=== PATIENT | male | born 1960 | race Caucasian/White ===

== ENCOUNTER → 2021-05-11 | Outpatient (CLI) | payer BC, OTHER | LOC: MRI 14:52 | PROVIDERS: ATTEND Family Medicine | DX: M47.27 Other spondylosis with radiculopathy, lumbosacral region (principal); M41.86 Other forms of scoliosis, lumbar region; M43.8X6 Other specified deforming dorsopathies, lumbar region; M48.061 Spinal stenosis, lumbar region without neurogenic claudication ==

== ENCOUNTER → 2021-06-02 | Outpatient (CLI) | payer BC, OTHER ==
[~2021-06-02] VITALS: Ht 172.7 cm; Wt 99.8 kg
[~2021-06-02] MED LIST: ADCIRCA20 MG PO; DIAZEPAM 10 MG10 M1 PO; FUROSEMIDE 40 M40 MG PO; KLOR-CON M2020 MEQ PO; MULTI VITAMIN1 EACH PO; TOPROL XL25 MG PO; VITAMIN C1000 MG PO
[2021-06-02 11:04] VITALS: BP 143/101
--- NOTE | 2021-06-02 11:42 | NUR ---
Pain Clinic Assessment: 1. History of Osteoarthritis: BACK History of Rheumatoid Arthritis: Not Applicable 2. Height: 5 ft. 8 in. 172.7 cm. Weight: 220.0 lb. oz. 99.792 kg. Patient's BMI: 33.5 3. Vital Signs: BP: 143/101 Pulse: 70 Resp: 20 Temp: 02 Sat: 94 ECG Mon: 4. Pain Intensity: 7 5. Fall Risk: Dizziness: Y Needs help standing or walking: N Fallen in the last 3 months: N Fall risk comments: 6. Patient on Blood Thinner: None 7. History of Hypertension: Y 8. Opioid Therapy greater than 6 weeks: Y Opiate Contract Signed: 9. Risk Assessment Tool Provided: MODERATE 10. Functional Assessment Tool: 7 11. Recreational Drug Use: Current within past 3 mos Drug Type: METHAMPHEDIMINE Tobacco Use: Current Every Day Smoker Tobacco Type: Amount or Packs/day: 2-3 How Many Years: 43 Alcohol Use: No Frequency: Quant:
--- NOTE | 2021-06-03 09:03 | HPC ---
[facility] [place] [address] PAIN MANAGEMENT CONSULTATION Name: NOLVIA CUBA Room #: [facility] Derik#: [id number] Admission: 06/02/21 Attend Phys: Les Chavez DO Discharge: Date of : 56 Report #: [id number] THIS REPORT FOR: cc: Les Jimenez,Les Diallo DO ~ cc: Les Jimenez DO DATE OF SERVICE: 06/02/2021 REFERRING PHYSICIAN: Dr. Les Jimenez CHIEF COMPLAINT: Low back pain, bilateral anterior thigh pain. HISTORY OF PRESENT ILLNESS: As you know, the patient is a pleasant 61-year-old male who has had a longstanding history of low back pain, which began in 1987. The patient reports multiple traumas in that timeframe that may have led to symptom development. He continues to experience low back symptoms and anterior thigh pain, which prompted a change in treatment through his primary care physician. Conservative treatment as well as physician directed physical therapy did not provide much in the way of improvement. Due to lack of improvement with conservative treatment, the patient was then referred on to epidural injections at another pain clinic. He was given nonsteroidal anti-inflammatories and epidural injections, though there is no report of whether or not these were effective. The patient was subsequently then sent for MRI of the lumbar spine, which showed severe central canal stenosis at the L4-L5 level and the patient was then referred to our clinic to discuss treatment options. The patient reports today pain is constant. He describes the pain as more of a shooting, aching, gnawing, sharp, numbness and tingling when describing pain. Places current pain score at 7/10. Daily average at 7/10. Worst pain has been is 9/10. The patient states the pain is exacerbated with standing, walking and bending, improves with heat pad, sitting down and repositioning. The patient has been referred to our service to discuss interventional treatment options to address low back and anterior thigh pain. PAST MEDICAL HISTORY: 1. Hypertension. 2. Stage IV pulmonary hypertension. 3. Coronary artery disease. 4. Degenerative joint disease. 5. Osteoarthritis. 6. Emotional problems. 7. Illicit substance addiction. 8. Chronic low back and anterior thigh pain. PAST SURGICAL HISTORY: None. [address] [address] PAIN MANAGEMENT CONSULTATION Name: NOLVIA CUBA [id number] Admission: 06/02/21 Attend Phys: Les Chavez DO Discharge: Date of : 56 Report #: [id number] SOCIAL HISTORY: The patient smokes 2-3 cigars per day. He has done this for about 15 years. He denies alcohol use. He has been out of the work force for 15 years, is a retired [employer] employee. He is not receiving workmen's compensation nor is he trying to obtain disability benefits. He is not in litigation in regards to pain. REVIEW OF SYSTEMS: Positive for low back pain, bilateral anterior thigh pain, shortness of breath with all activities, coronary artery disease. All other review of systems negative per 12-point review of systems other than those listed in history of present illness. Pain impact score 56 of 70 indicating severe interference of daily activities secondary to pain. ALLERGIES: No known drug allergies. CURRENT MEDICATIONS: Potassium chloride 20 mEq twice a day, furosemide 40 mg once a day, diazepam 10 mg p.o. every day, metoprolol 25 mg once a day, ascorbic acid 1000 mg once a day, multivitamin 1 tab per day, tadalafil 20 mg 2 tabs per day. IMAGING: MRI lumbar spine obtained 05/11/2021 shows L1-L2, L2-L3 essentially unremarkable. L3-L4 shows broad-based posterior disk bulge with effacement of the ventral thecal sac, severe bilateral facet arthrosis. No significant overall central canal stenosis, mild right and severe left medial foraminal stenosis with exiting L3 nerve root involved. L4-L5 shows degenerative grade I anterolisthesis, posterior bulge, foraminal disk protrusion, facet arthropathy resulting in severe foraminal stenosis, impingement upon the left L4 nerve root. L5-S1, no significant disk bulge or protrusion identified. Severe bilateral facet arthrosis. PHYSICAL EXAMINATION: VITAL SIGNS: Blood pressure 143/101, pulse is 70, respiratory rate 20, unlabored. The patient is 94% on room air. Height 5 feet 8 inches tall, weight 220 pounds, BMI calculated 33.5. GENERAL: Well-developed, well-nourished, well-hydrated 61-year-old male, appears older than stated age. Pain is rated today around 7/10. HEENT: Normocephalic, atraumatic. Pupils equal, round and responsive to light. Speech is fluent. He is deemed an excellent historian. He is wearing a mask in compliance with COVID-19 regulations. LUNGS: Decreased breath sounds bilaterally. There is a prolonged expiratory phase. There is no brad rhonchi or rales. CARDIOVASCULAR: Regular. No appreciable gallop, no rub. ABDOMEN: Soft, obese, normoactive bowel sounds. EXTREMITIES: Show minimal clubbing of the upper extremities. No cyanosis, no [address] [address] PAIN MANAGEMENT CONSULTATION Name: NOLVIA CUBA Room #: [facility]#: [id number] Admission: 06/02/21 Attend Phys: Les Chavez DO Discharge: Date of : 56 Report #: [id number] edema. MUSCULOSKELETAL: Lower extremity strength equal and symmetrical 5/5. Deep tendon reflexes are symmetrical at patella and Achilles, but diminished 1+/4. Muscle bulk and tone is symmetrical in comparing lower extremities. Seated straight leg raising negative. Supine straight leg raising positive on the left. Kassi's test is negative. Modified Gaenslen's positive for axial low back pain. Ankle clonus negative. Babinski is negative. Lumbar provocation testing is met with increasing axial back pain, mainly with rotation and lateral flexion to the left. ASSESSMENT: 1. Symptomatic lumbar radiculopathy. 2. Severe neural foraminal stenosis of lumbar spine. 3. Central canal stenosis of lumbar spine. 4. Displacement of lumbar intervertebral disk with radiculopathy. 5. Lumbosacral spondylosis with radiculopathy. 6. Facet arthropathy of lumbar spine. 7. Chronic intractable pain. PLAN: 1. Based on today's physical exam and the history the patient has provided, the description the patient uses in regards to pain as well as location of symptoms, it would appear the patient is suffering from lumbar radiculopathy. He is also experiencing axial back pain due to severe facet arthropathy noted at multiple levels in the lumbar region. We discussed with the patient the treatment options we have available and following was discussed with the patient today. We discussed physical therapy, stretching exercises and core strengthening as a treatment approach. The patient is currently being treated by a physician directed home stretching and exercise program. We recommend he continue this option if symptoms do not improve and the patient wishes a more formalized program. We can certainly have the patient sent for physical therapy in a formalized fashion, though he is participating in those activities at home, but they are limited by his pulmonary hypertension and difficulty with oxygenation. We also discussed with the patient neuropathic medications as a treatment course. We would provide suggestions of amitriptyline, nortriptyline, Cymbalta, Lyrica or gabapentin if he chose to look towards these options of therapy. We also discussed lumbar epidural injections under fluoroscopic guidance for which the patient was referred to our clinic. We discussed spinal cord stimulator therapy as an option and ultimately surgical decompression. After reviewing the risks and benefits of all proposed treatment options, the patient requested to begin with a lumbar epidural injection under fluoroscopic guidance. 2. The patient was advised due to third green party payer restrictions that authorization would have to be obtained before the patient could undergo a lumbar epidural injection. Authorization could take anywhere from 1-7 working days, will begin that process immediately. Once we have this authorization, we [address] [address] PAIN MANAGEMENT CONSULTATION Name: BEREKETNOLVIA Murillo Room #: [facility]#: [id number] Admission: 06/02/21 Attend Phys: Les Chavez DO Discharge: Date of : 56 Report #: [id number] will have the patient return to undergo lumbar epidural injection. I have requested the patient to clear the remainder of his schedule from the time of the procedure for the first 24 hours. We want him to remain relatively sedentary, allowing the medication to reach full effect. The patient is agreeable with this plan. Once we have the authorization, we will have the patient return. 3. No medication changes made at today's visit. The patient will continue current medical therapy as prior prescribed. 4. We plan to see the patient back in followup visit for the requested lumbar epidural injection. We are hopeful this will occur quickly and we will see the patient back to undergo the procedure. We wish to thank Dr. Les Jimenez for the referral of this patient to our clinic. We will keep you apprised of his response to treatment as we address lumbar radicular symptoms with interventional treatments. Again, we wish to thank you for the opportunity to see the patient in consultation. <ELECTRONICALLY SIGNED> By: Les Chavez DO 06/03/21 0903 [id number] Les Chavez DO /nt
--- NOTE | 2021-06-09 08:17 | HPC ---
[facility] [place] [address] PAIN MANAGEMENT CONSULTATION Name: NOLVIA CUBA [facility] [id number] Admission: 06/02/21 Attend Phys: Les Chavez DO Discharge: Date of : 56 Report #: [id number] THIS REPORT FOR: cc: Les Jimenez James A. DO Johnson, James E. DO ~ DATE OF SERVICE: 06/03/2021 CHIEF COMPLAINT: Low back pain, bilateral anterior thigh pain. HISTORY OF PRESENT ILLNESS: As you know, the patient is a 61-year-old male with longstanding history of low back pain began in 1987. He reports multiple traumas throughout his lifetime that finally led to increasing pain that he could no longer tolerate. He was sent for MRI of lumbar spine showed severe central canal stenosis at L4-L5 level and was referred on to our clinic to trial epidural injections. We saw the patient in consultation yesterday 06/02/2021, provided today's appointment to undergo lumbar epidural injection under fluoroscopic guidance to address his 6/10 pain. The patient returns today in followup visit to undergo the first in a series of lumbar epidural injections under fluoroscopic guidance. ALLERGIES: No known drug allergies. CURRENT MEDICATIONS: Potassium chloride, furosemide, diltiazem, metoprolol, ascorbic acid, multivitamin, and Cialis. SOCIAL HISTORY: The patient smokes 2-3 cigars per day. He has done so for about 15 years. He denies alcohol use. He has been out of workforce about 15 years. He is not receiving workmen's compensation, unaccompanied today. IMAGING: No new imaging available. PHYSICAL EXAMINATION: VITAL SIGNS: Blood pressure 141/93, pulse 76, respiratory rate 18 and unlabored. The patient is 95% on room air. Height 5 feet 8 inches tall, weight 223.2 pounds, BMI calculated 33.9. GENERAL: Well-developed, well-nourished, well-hydrated 61-year-old male appearing stated age, pain is rated today 6/10. HEENT: Normocephalic, atraumatic. Pupils equal, round and responsive. He is wearing a mask in compliance with COVID-19 regulations. EXTREMITIES: Show minimal clubbing of the upper extremities. No cyanosis, no edema. MUSCULOSKELETAL: Lower extremity strength remains symmetrical again today 5/5. Seated straight leg raising negative. Supine straight leg raising is positive on the left. Kassi's test is negative. Modified Gaenslen's positive for axial low back pain. Ankle clonus negative. [address] [address] PAIN MANAGEMENT CONSULTATION Name: NOLVIA CUBA Room #: REG [facility]#: [id number] Admission: 06/02/21 Attend Phys: Les Chavez DO Discharge: Date of : 56 Report #: [id number] ASSESSMENT: 1. Symptomatic lumbar radiculopathy. 2. Severe neural foraminal stenosis of lumbar spine. 3. Central canal stenosis of lumbar spine. 4. Displacement of lumbar intervertebral disk with radiculopathy. 5. Lumbosacral spondylosis with radiculopathy. 6. Facet arthropathy of the lumbar spine. 7. Chronic intractable pain. PLAN: 1. The patient returns today in followup visit having prepared to undergo the first in a series of lumbar epidural injections under fluoroscopic guidance. The patient has been advised of the risks and the benefits of a lumbar epidural injection. These risks include, but are not necessarily limited to; bleeding, bruising, infection, worsening of pain, no relief of pain, temporary or permanent muscle weakness, temporary or permanent nerve damage, possible paralysis, post-dural puncture headache and . The patient states understood and wished to proceed. 2. No medication changes made at today's visit. The patient will continue current medical therapy as prior prescribed. 3. We plan to see the patient back in followup visit in 1 month. At that time, review the efficacy of today's lumbar epidural injection in terms next in the series of epidural injections would be recommended. We are hopeful the patient will see good and prolonged benefit with today's procedure. PROCEDURE NOTE: DESCRIPTION OF PROCEDURE: L4-L5 interlaminar epidural steroid injection under fluoroscopic guidance. This is the first procedure of the first series that the patient is undergoing. After obtaining written consent, the patient was taken back to the fluoroscopy suite, placed in a prone position with pillow under the abdomen to decrease lumbar lordosis. The skin overlying the lumbosacral area was then prepped and draped in aseptic fashion. The L4-L5 vertebral interspace was then identified by AP fluoroscopy. The skin and subcutaneous tissue overlying the target site of injection was anesthetized with 3 mL 1% lidocaine. A 20-gauge 3-1/2 inch Tuohy needle was then advanced under fluoroscopic guidance towards the epidural space using a parasagittal approach. The epidural space was identified using loss of resistance to air technique. After negative aspiration for heme or cerebrospinal fluid, a total of 1 mL of Omnipaque was injected. A lumbar epidurogram was confirmed using both AP and lateral fluoroscopy. After negative aspiration for heme or cerebrospinal fluid, 5 mL of a solution containing 2 mL 40 mg per mL 80 mg total triamcinolone along with [address] [address] PAIN MANAGEMENT CONSULTATION Name: NOLVIA CUBA [facility] [id number] Admission: 06/02/21 Attend Phys: Les Chavez DO Discharge: Date of : 56 Report #: [id number] mL of lidocaine 1% was injected in increments. Contrast spread was noted in the posterior epidural space. The needle was then retracted approximately half way and needle tract flushed with 1 mL of 1% lidocaine. Needle was then removed. There were no apparent sensory or motor deficits in the lower extremity following the procedure. A sterile bandage was placed over the injection site. The heart rate, pulse, oximetry and blood pressure were continuously monitored after the procedure. There were no apparent complications. The patient tolerated the procedure well and was carefully escorted to the recovery room in stable condition. There were no apparent complications. After meeting discharge criteria, the patient was then discharged home. <ELECTRONICALLY SIGNED> By: Les Chavez DO 06/09/21 0817 [id number] Les Chavez DO /nt
== END | disposition home or self-care (01) ==
LOC: PAIN 10:10
PROVIDERS: ATTEND Anesthesiology Pain Medicine
DX: M51.16 Intervertebral disc disorders with radiculopathy, lumbar region (principal); M48.061 Spinal stenosis, lumbar region without neurogenic claudication; M47.27 Other spondylosis with radiculopathy, lumbosacral region; M47.26 Other spondylosis with radiculopathy, lumbar region; G89.29 Other chronic pain; I10 Essential (primary) hypertension; I25.10 Atherosclerotic heart disease of native coronary artery without angina pectoris; M19.90 Unspecified osteoarthritis, unspecified site; F17.210 Nicotine dependence, cigarettes, uncomplicated; Z98.890 Other specified postprocedural states; Z79.899 Other long term (current) drug therapy; Z88.8 Allergy status to other drugs, medicaments and biological substances

== ENCOUNTER → 2021-06-03 | Outpatient (CLI) | payer BC, OTHER ==
[~2021-06-03] VITALS: Ht 172.7 cm; Wt 101.2 kg
[2021-06-03 09:41] VITALS: BP 141/93
--- NOTE | 2021-06-03 09:46 | NUR ---
Pain Clinic Assessment: 1. History of Osteoarthritis: BACK History of Rheumatoid Arthritis: Not Applicable 2. Height: 5 ft. 8 in. 172.7 cm. Weight: 223.2 lb. oz. 101.243 kg. Patient's BMI: 33.9 3. Vital Signs: BP: 141/93 Pulse: 76 Resp: 18 Temp: 02 Sat: 95 ECG Mon: 4. Pain Intensity: 6 5. Fall Risk: Dizziness: N Needs help standing or walking: N Fallen in the last 3 months: N Fall risk comments: 6. Patient on Blood Thinner: None 7. History of Hypertension: Y 8. Opioid Therapy greater than 6 weeks: Y Opiate Contract Signed: 9. Risk Assessment Tool Provided: MODERATE 10. Functional Assessment Tool: 7 11. Recreational Drug Use: Current within past 3 mos Drug Type: METH Tobacco Use: Current Every Day Smoker Tobacco Type: Cigars Amount or Packs/day: 3/D How Many Years: Alcohol Use: No Frequency: Quant:
== END | disposition home or self-care (01) ==
LOC: PAIN 08:29
PROVIDERS: ATTEND Anesthesiology Pain Medicine
DX: M51.16 Intervertebral disc disorders with radiculopathy, lumbar region (principal); M47.27 Other spondylosis with radiculopathy, lumbosacral region; M47.26 Other spondylosis with radiculopathy, lumbar region; M48.061 Spinal stenosis, lumbar region without neurogenic claudication; G89.29 Other chronic pain; F17.210 Nicotine dependence, cigarettes, uncomplicated; Z98.890 Other specified postprocedural states; Z79.899 Other long term (current) drug therapy

== ENCOUNTER → 2021-06-30 | Outpatient (CLI) | payer BC, OTHER ==
[~2021-06-30] VITALS: Ht 172.7 cm; Wt 99.3 kg
[2021-06-30 10:07] VITALS: BP 139/98
--- NOTE | 2021-06-30 10:17 | NUR ---
Pain Clinic Assessment: 1. History of Osteoarthritis: BACK History of Rheumatoid Arthritis: Not Applicable 2. Height: 5 ft. 8 in. 172.7 cm. Weight: 219.0 lb. oz. 99.338 kg. Patient's BMI: 33.3 3. Vital Signs: BP: 139/98 Pulse: 106 Resp: 20 Temp: 02 Sat: 96 ECG Mon: 4. Pain Intensity: 4 5. Fall Risk: Dizziness: N Needs help standing or walking: N Fallen in the last 3 months: N Fall risk comments: 6. Patient on Blood Thinner: None 7. History of Hypertension: Y 8. Opioid Therapy greater than 6 weeks: Y Opiate Contract Signed: 9. Risk Assessment Tool Provided: low-0 10. Functional Assessment Tool: 56/70 11. Recreational Drug Use: Current within past 3 mos Drug Type: methamphetamine Tobacco Use: Current Every Day Smoker Tobacco Type: Cigars Amount or Packs/day: 2-3 How Many Years: 52 Alcohol Use: No Frequency: Quant:
--- NOTE | 2021-06-30 14:13 | HPC ---
[facility] [place] [address] PAIN MANAGEMENT CONSULTATION Name: NOLVIA CUBA [id number] Admission: 06/30/21 Attend Phys: Les Chavez DO Discharge: Date of : 56 Report #: [id number] THIS REPORT FOR: cc: Les Jimenez James A. DO Johnson, James E. DO ~ cc: Les Jimenez DO DATE OF SERVICE: 06/30/2021 CHIEF COMPLAINT: Low back pain, bilateral anterior thigh pain. HISTORY OF PRESENT ILLNESS: As you know, the patient is a 61-year-old male with longstanding history of back pain, which began in 1987. He reports multiple traumas throughout his lifetime, which in combination led to progressively worsening symptoms. He underwent a lumbar epidural injection under fluoroscopic guidance per the request of his primary care physician on 06/03/2021. The patient did very well with that injection reporting up to 50% improvement in overall pain, which is ongoing. He returns today in followup visit 1 month postprocedure to discuss treatment options if his symptoms do reoccur. He states overall his pain level of 4/10 is tolerable for him. He does describe pain is exacerbated with standing, walking and activities, improved with heat and cold compresses, sitting and the previous epidural injection. ALLERGIES: No known drug allergies. CURRENT MEDICATIONS: Potassium chloride, furosemide, diltiazem, metoprolol, ascorbic acid and intermittent Cialis. SOCIAL HISTORY: The patient smokes 2-3 cigars per day. He has done so for about 15 years. Denies IV or illicit drug use. He has been out of work force for about 15 years. He reports positive for methamphetamines. He is not receiving workmen's compensation nor is he trying to obtain disability benefits, unaccompanied today. IMAGING: No new imaging available. PHYSICAL EXAMINATION: VITAL SIGNS: Blood pressure 139/98, pulse 106, respiratory rate 20, unlabored. The patient is 96% on room air. Height 5 feet 8 inches tall, weight 219 pounds, BMI calculated 33.3. GENERAL: Well-developed, well-nourished, well-hydrated 61-year-old male, appears older than stated age, pain is rated today around 4/10. HEENT: Normocephalic, atraumatic. Pupils equal, round and responsive. He is wearing a mask in compliance with COVID-19 regulations and hospital policy. EXTREMITIES: Show minimal clubbing of the upper extremities. No cyanosis, no edema. [address] [address] PAIN MANAGEMENT CONSULTATION Name: NOLVIA CUBA Room #: REG [facility]#: [id number] Admission: 06/30/21 Attend Phys: Les Chavez DO Discharge: Date of : 56 Report #: [id number] MUSCULOSKELETAL: Seated straight leg raising is negative. Supine straight leg raising remains positive on the left at about 65-70 degree angle. Ankle clonus negative. Babinski is negative. Modified Gaenslen's positive for axial low back pain. Muscle bulk and tone is equal and symmetrical in lower extremities. Strength appears normal. ASSESSMENT: 1. Symptomatic lumbar radiculopathy. 2. Severe neural foraminal stenosis of lumbar spine. 3. Central canal stenosis of lumbar spine. 4. Displacement of lumbar intervertebral disk with radiculopathy. 5. Lumbosacral spondylosis with radiculopathy. 6. Facet arthropathy of lumbar spine. 7. Chronic intractable pain. PLAN: 1. The patient returns today in followup visit having noted excellent benefit with the lumbar epidural injection performed in 05/2021. He reports approximately 50% improvement in overall pain, which is ongoing. The patient is very pleased with response to treatment. He states that he is now down to a level of tolerable from a pain standpoint. He wishes to delay the next in the series of epidural injections until which time his pain becomes intolerable. We will make ourselves available to the patient to accommodate his schedule if he requires the next in the series of epidural injections. 2. The patient and I did discuss today suggestions of treatment to address neuropathic residual symptoms. We would recommend either amitriptyline, nortriptyline, Cymbalta, Lyrica or gabapentin. I would caution the use of those medications with concomitant use of methamphetamines for which the patient continues to participate in usage. There have been no direct studies to confirm potential side effects or synergistic effects with these medications and methamphetamines today. If this patient is going to be started on medications, I would be very careful and have the titrate and watch for any side effects. 3. I plan to see the patient back in followup visit on an as-needed basis for the next in the series of lumbar epidural injections. We are pleased to see the patient has done well with those injections and we will be available to see him back for the next in the series. <ELECTRONICALLY SIGNED> By: Les Chavez DO 06/30/21 1413 [id number] Les Chavez DO /nt
== END ==
LOC: PAIN 09:54
PROVIDERS: ATTEND Anesthesiology Pain Medicine
DX: M51.26 Other intervertebral disc displacement, lumbar region (principal); M47.26 Other spondylosis with radiculopathy, lumbar region; M47.27 Other spondylosis with radiculopathy, lumbosacral region; M48.062 Spinal stenosis, lumbar region with neurogenic claudication; M79.651 Pain in right thigh; M79.652 Pain in left thigh; G89.29 Other chronic pain; Z79.899 Other long term (current) drug therapy

== ENCOUNTER → 2021-08-11 | Outpatient (CLI) | payer BC, OTHER ==
[~2021-08-11] VITALS: Ht 172.7 cm; Wt 100.3 kg
[2021-08-11 09:49] VITALS: BP 126/91
--- NOTE | 2021-08-11 10:01 | NUR ---
Pain Clinic Assessment: 1. History of Osteoarthritis: BACK History of Rheumatoid Arthritis: Not Applicable 2. Height: 5 ft. 8 in. 172.7 cm. Weight: 221.2 lb. oz. 100.336 kg. Patient's BMI: 33.6 3. Vital Signs: BP: 126/91 Pulse: 97 Resp: 14 Temp: 02 Sat: 93 ECG Mon: 4. Pain Intensity: 7 5. Fall Risk: Dizziness: Y Needs help standing or walking: N Fallen in the last 3 months: N Fall risk comments: 6. Patient on Blood Thinner: None 7. History of Hypertension: Y 8. Opioid Therapy greater than 6 weeks: Y Opiate Contract Signed: 9. Risk Assessment Tool Provided: mod-4 10. Functional Assessment Tool: 56/70 11. Recreational Drug Use: Current within past 3 mos Drug Type: Tobacco Use: Current Every Day Smoker Tobacco Type: Cigars Amount or Packs/day: 2-3 How Many Years: Alcohol Use: No Frequency: Quant:
--- NOTE | 2021-08-11 13:46 | HPC ---
[facility] [place] [address] PAIN MANAGEMENT CONSULTATION Name: NOLIVA CUBA Room #: REG [facility] Derik#: [id number] Admission: 08/11/21 Attend Phys: Les Chavez DO Discharge: Date of : 56 Report #: [id number] THIS REPORT FOR: cc: Les Jimenez,Les Diallo DO ~ cc: Les Jimenez DO DATE OF SERVICE: 08/11/2021 CHIEF COMPLAINT: Low back pain, bilateral anterior thigh pain, right greater than left. HISTORY OF PRESENT ILLNESS: As you know, the patient is a 61-year-old male with longstanding history of back pain, which began in 1987. He reports multiple traumas that he believes combined to be due to his progressively worsening symptoms. He underwent a lumbar epidural injection under fluoroscopic guidance at our visit of 06/03/2021. The patient reports that injection provided improvement in symptoms of greater than 50-60%, which is ongoing. He returns today in followup visit reporting a slow and progressive return of symptoms now placing pain score 7/10. He is very pleased with response to the first injection returning today to begin the process of undergoing the next in the series of epidural injections. The patient denies injury or trauma that may have led to symptom reoccurrence. He has had no changes in his medication management that would preclude him from undergoing the requested injection. He understands that authorization will be necessary before he can undergo the procedure. He is hopeful that he can undergo this procedure quickly as he is planning to be quite active over the next couple of months. He describes the pain begins in low back, radiates to the anterior thighs, right greater than left. This is fairly typical for the patient's distribution of symptoms. ALLERGIES: No known drug allergies. CURRENT MEDICATIONS: Potassium chloride 20 mcg twice a day, furosemide 40 mg once a day, diazepam 10 mg p.r.n., metoprolol 25 mg b.i.d., ascorbic acid 1000 mg once a day, multivitamin 1 tab per day, tadalafil 20 mg p.r.n. SOCIAL HISTORY: The patient smokes 2-3 cigars per day. He has done so for about 15 years. He denies alcohol use. He does admit to methamphetamine use. He is unemployed. He is unaccompanied today. IMAGING: No new imaging available. PHYSICAL EXAMINATION: VITAL SIGNS: Blood pressure 126/91, pulse 97, respiratory rate 14 and unlabored. The patient 93% on room air. Height 5 feet 8 inches tall, weight 221.2 pounds, BMI [place] 33[place]6. [place] [address] PAIN MANAGEMENT CONSULTATION Name: NOLVIA CUBA [facility] [id number] Admission: 08/11/21 Attend Phys: Les Chavez DO Discharge: Date of : 56 Report #: [id number] GENERAL: Well-developed, well-nourished, well-hydrated 61-year-old male appearing stated age, pain is rated today around 7/10. HEENT: Normocephalic, atraumatic. Pupils are round. He is wearing a mask in compliance with COVID-19 regulations. EXTREMITIES: Show no clubbing, no cyanosis and no appreciable edema. MUSCULOSKELETAL: Lower extremity strength appears symmetrical 5/5. Muscle bulk and tone is symmetrical in comparing lower extremities. Seated straight leg raising negative. Supine straight leg raising is positive at this time on the right approximately 60-degree angle, negative on the left. Ankle clonus negative. Babinski's is negative. Modified Gaenslen's positive again for low back pain. There does not appear to be any radiation of symptoms with propagating testing. He is able to toe walk and heel walk with mild assistance. He is intact to light touch from L1 through S2 dermatomes. ASSESSMENT: 1. Symptomatic lumbar radiculopathy. 2. Severe neural foraminal stenosis of lumbar spine. 3. Central canal stenosis of lumbar spine. 4. Displacement of lumbar intervertebral disk with radiculopathy. 5. Lumbosacral spondylosis with radiculopathy. 6. Facet arthropathy of lumbar spine. 7. Chronic intractable pain. PLAN: 1. The patient returns today in followup visit to begin the process of undergoing the next in the series of lumbar epidural injections. The patient has done very well with the previous injection noticing greater than 50% improvement in overall pain lasting until just recently. He has had a slow and progressive return of symptoms without inciting injury or trauma. He is placing pain today at 7/10. Based on the physical exam and the history he provides and the recurrence of symptoms, it does appear that his foraminal stenosis has been re-exacerbated with activity. We recommend the next in the series of lumbar epidural injections. We will begin the process immediately of authorization. Once that process has been completed, we will have the patient return to undergo the next in the series. The patient is agreeable with the plan. 2. No medication changes made at today's visit. The patient will continue current medical therapy as prior prescribed. 3. We will see the patient back in followup visit once authorization has been obtained for him to undergo the requested lumbar epidural injection. I am hopeful the patient will have that capability to undergo the procedure quite quickly. We will begin that process immediately. We will contact the patient [facility] [address] [place] [address] PAIN MANAGEMENT CONSULTATION Name: NOLVIA CUBA Room #: REG CLNemo More#: [id number] Admission: 08/11/21 Attend Phys: Les Chavez DO Discharge: Date of : 56 Report #: [id number] by phone once we have this authorization and have him return to undergo the procedure. <ELECTRONICALLY SIGNED> By: Les Chavez DO 08/11/21 1346 [id number] [id number] Les Chavez DO /nt
== END ==
LOC: PAIN 08:13
PROVIDERS: ATTEND Anesthesiology Pain Medicine
DX: M47.26 Other spondylosis with radiculopathy, lumbar region (principal); M51.17 Intervertebral disc disorders with radiculopathy, lumbosacral region; M48.061 Spinal stenosis, lumbar region without neurogenic claudication; M47.27 Other spondylosis with radiculopathy, lumbosacral region; M79.651 Pain in right thigh; M79.652 Pain in left thigh; G89.29 Other chronic pain; Z79.899 Other long term (current) drug therapy

== ENCOUNTER → 2021-08-18 | Outpatient (CLI) | payer BC, OTHER ==
[~2021-08-18] VITALS: Ht 172.7 cm; Wt 101.6 kg
[2021-08-18 09:58] VITALS: BP 134/93
--- NOTE | 2021-08-18 10:05 | NUR ---
Pain Clinic Assessment: 1. History of Osteoarthritis: BACK History of Rheumatoid Arthritis: Not Applicable 2. Height: 5 ft. 8 in. 172.7 cm. Weight: 224.0 lb. oz. 101.606 kg. Patient's BMI: 34.1 3. Vital Signs: BP: 134/93 Pulse: 92 Resp: 16 Temp: 02 Sat: 95 ECG Mon: 4. Pain Intensity: 6 5. Fall Risk: Dizziness: N Needs help standing or walking: N Fallen in the last 3 months: N Fall risk comments: 6. Patient on Blood Thinner: None 7. History of Hypertension: Y 8. Opioid Therapy greater than 6 weeks: Y Opiate Contract Signed: 9. Risk Assessment Tool Provided: mod-4 10. Functional Assessment Tool: 56/70 11. Recreational Drug Use: Current within past 3 mos Drug Type: Tobacco Use: Current Every Day Smoker Tobacco Type: Amount or Packs/day: How Many Years: Alcohol Use: No Frequency: Quant:
--- NOTE | 2021-08-19 08:06 | HPC ---
[facility] [place] [address] PAIN MANAGEMENT CONSULTATION Name: NOLVIA CUBA Room #: [facility] [id number] Admission: 08/18/21 Attend Phys: Les Chavez DO Discharge: Date of : 56 Report #: [id number] THIS REPORT FOR: cc: Les Jimenez,Les Diallo DO ~ cc: Les Jimenez DO DATE OF SERVICE: 08/18/2021 CHIEF COMPLAINT: Low back pain and bilateral anterior thigh pain, right greater than left. HISTORY OF PRESENT ILLNESS: As you know, the patient is a very pleasant 61-year-old male with longstanding history of back pain, which began in 1987. He reports multiple traumas that may have led to the symptom development. He was seen in consultation per the request of his primary care physician, undergoing a lumbar epidural injection once authorization had been obtained with a 60% improvement in overall pain. He returns today for the second in the series. We have obtained authorization for the patient to undergo the procedure. He is placing the pain today at 6/10. The patient has had no changes in his medication management since our last visit that would preclude him from undergoing an injection today. ALLERGIES: No known drug allergies. CURRENT MEDICATIONS: See chart. SOCIAL HISTORY: The patient continues to smoke 2-3 cigars per day. He has done so for about 15 years. He denies alcohol use. He admits to methamphetamine use. He is unemployed. He is unaccompanied today. IMAGING: No new imaging available. PHYSICAL EXAMINATION: VITAL SIGNS: Blood pressure 134/93, pulse 92, respiratory rate 16 and unlabored. The patient is 95% on room air. Height 5 feet 8 inches tall, weight 224 pounds, BMI calculated 34.1. GENERAL: Well-developed, well-nourished, well-hydrated 61-year-old male appearing stated age. Pain is rated today at 6/10. HEENT: Normocephalic, atraumatic. He is wearing a mask in compliance with COVID-19 regulations and hospital policies. EXTREMITIES: Show no clubbing, no cyanosis, no edema. MUSCULOSKELETAL: Lower extremity strength is symmetrical, 5/5. Seated straight leg raising remains negative. Supine straight leg raising is positive on the right, negative on the left. Ankle clonus negative. There appears to be a mild gait change, favoring right lower extremity over left. [facility] [address] [place] [address] PAIN MANAGEMENT CONSULTATION Name: NOLVIA CUBA Room #: REG [facility]#: [id number] Admission: 08/18/21 Attend Phys: Les Chavez DO Discharge: Date of : 56 Report #: [id number] ASSESSMENT: 1. Symptomatic lumbar radiculopathy. 2. Severe neuroforaminal stenosis of the lumbar spine. 3. Central canal stenosis of the lumbar spine. 4. Displacement of lumbar intervertebral disc with radiculopathy. 5. Lumbosacral spondylosis with radiculopathy. 6. Facet arthropathy of lumbar spine. 7. Chronic intractable pain. PLAN: 1. The patient returns today in followup visit to undergo lumbar epidural injection under fluoroscopic guidance. The patient has been advised of the risks and the benefits of this procedure. These risks include, but are not necessarily limited to bleeding, bruising, infection, worsening pain, no relief of pain, also risk of temporary or permanent muscle weakness, temporary or permanent nerve damage, possible paralysis, and . The patient states understood and wished to proceed. 2. No medication changes made at today's visit. We recommend the patient continue current medical therapy as prior prescribed. 3. Plan to see the patient back in followup visit on an as needed basis for the third in the series of lumbar epidural injections if requested. PROCEDURE NOTE PROCEDURE: L4-L5 right paramedian epidural steroid injection under fluoroscopic guidance. DESCRIPTION OF PROCEDURE: This is the second procedure of the first series that the patient is undergoing. After obtaining written consent, the patient was taken back to the fluoroscopy suite, placed in a prone position with pillow under the abdomen to decrease lumbar lordosis. The skin overlying the lumbosacral area was then prepped and draped in aseptic fashion. The L4-L5 vertebral interspace was then identified by AP fluoroscopy. The skin and subcutaneous tissue overlying the target site of injection was anesthetized with 3 mL 1% lidocaine. A 20-gauge Tuohy needle was then advanced under fluoroscopic guidance towards the epidural space using a right paramedian approach. The epidural space was identified using loss of resistance to air technique. After negative aspiration for heme or cerebrospinal fluid, a total of 1 mL of Omnipaque was injected. A lumbar epidurogram was confirmed using both AP and lateral fluoroscopy. After negative aspiration for heme or cerebrospinal fluid, 5 mL of a solution containing 2 mL 40 mg per mL, 80 mg total triamcinolone along with 3 mL of lidocaine 1% was injected in increments. Contrast spread was noted in [facility] [address] [place] [address] PAIN MANAGEMENT CONSULTATION Name: NOLVIA CUBA Room #: REG CL Keegan#: [id number] Admission: 08/18/21 Attend Phys: Les Chavez DO Discharge: Date of : 56 Report #: [id number] postepidural space. The needle was then retracted approximately half way and needle tract flushed with 1 mL of 1% lidocaine. Needle was then removed. There were no apparent sensory or motor deficits in the lower extremity following the procedure. A sterile bandage was placed over the injection site. The heart rate, pulse, oximetry and blood pressure were continuously monitored after the procedure. There were no apparent complications. The patient tolerated the procedure well and was carefully escorted to the recovery room in stable condition. There were no apparent complications. After meeting discharge criteria, the patient was then discharged home. <ELECTRONICALLY SIGNED> By: Les Chavez DO 08/19/21 [id number] Les Chavez DO /nt
== END | disposition home or self-care (01) ==
LOC: PAIN 06:50
PROVIDERS: ATTEND Anesthesiology Pain Medicine
DX: M51.16 Intervertebral disc disorders with radiculopathy, lumbar region (principal); M47.27 Other spondylosis with radiculopathy, lumbosacral region; M47.26 Other spondylosis with radiculopathy, lumbar region; M48.061 Spinal stenosis, lumbar region without neurogenic claudication; G89.29 Other chronic pain; F17.210 Nicotine dependence, cigarettes, uncomplicated; Z98.890 Other specified postprocedural states; Z79.899 Other long term (current) drug therapy